=== PATIENT | male | born 1995 | race Caucasian/White ===

== ENCOUNTER 2022-07-07 08:42 | Emergency (ER) | payer OTHER ==
[~2022-07-07] VITALS: Ht 182.9 cm; Wt 109.1 kg
[2022-07-07] MEDS ORDERED: METHOCARBAMOL 500 MG TABLET PO ONE (09:00)
[2022-07-07] MEDS ORDERED: KETOROLAC TROMETHAMINE 30 MG/ML VIAL IVP ONE (09:00)
[2022-07-07 09:26] LABS: BASOPHILS % (AUTO) 0.2 % (0.0-2.0); EOSINOPHILS % (AUTO) 2.3 % (1.0-6.0); LYMPHOCYTES % (AUTO) 28.3 % (22.0-44.0); MEAN CORPUSCULAR HEMOGLOBIN 30.6 pg (26.0-34.0); MEAN CORPUSCULAR HGB CONC 34.8 G/dL (31.0-37.0); MEAN CORPUSCULAR VOLUME 88 fL (80-100); MONOCYTES # (AUTO) 0.7 K/uL (0.1-1.0); MONOCYTES % (AUTO) 9.9 % (2.0-9.0); NEUTROPHILS # (AUTO) 4.3 K/uL (1.8-7.7); NEUTROPHILS % (AUTO) 59.3 % (40.0-70.0); PLATELET COUNT (AUTO) 209 K/uL (150-450); RED BLOOD CELL COUNT(AUTO) 4.89 MIL/uL (4.50-5.90); RED CELL DISTRIBUTION WIDTH 13.2 % (11.5-14.5)
[2022-07-07 09:32] LABS: ANION GAP 9 mmol/L (8-16); CALCIUM, TOTAL 9.6 mg/dL (8.8-10.5); CARBON DIOXIDE 26 mmol/L (22-29); CHLORIDE 98 mmol/L (98-107); CREATININE 1.11 mg/dL (0.60-1.30); GLOMERULAR FILTR. RATE CALC > 60 mL/min (>60); GLUCOSE,RANDOM 108 mg/dL (70-110); POTASSIUM 3.9 mmol/L (3.5-5.1); SODIUM SERUM 133 mmol/L (136-145); UREA NITROGEN, BLOOD 14 mg/dL (7-18)
[2022-07-07 09:38] LABS: ALANINE AMINOTRANSFERASE 25 U/L (12-78); ALKALINE PHOSPHATASE 48 U/L (46-116); ASPARTATE AMINOTRANSFERASE 23 U/L (15-37); TOTAL PROTEIN, SERUM 6.9 g/dL (6.4-8.2)
[2022-07-07 10:51] VITALS: BP 107/66
[2022-07-07] MEDS ORDERED: METH-812 PO (12:22)
[2022-07-07] MEDS ORDERED: IBUP-2070 PO (12:22)
== END 2022-07-07 12:47 | disposition home or self-care (01) ==
LOC: EMS 08:44
DX: R55 Syncope and collapse (principal); M99.02 Segmental and somatic dysfunction of thoracic region
CPT/HCPCS: 99285; 96374; 71045; 80053; 82962; 84484; 85025; 36415; 93005; J1885